=== PATIENT | male | born 1965 | race Caucasian/White ===

== ENCOUNTER 2016-08-01 05:38 | Inpatient (IN) | payer OTHER ==
--- NOTE | 2016-07-27 15:17 | PREOPHP ---
DATE OF ADMISSION: 08/01/2016 PREOPERATIVE INTERNAL MEDICINE CONSULTATION, MEDICAL HISTORY, AND PHYSICAL EXAMINATION The patient is to have surgery with Dr. Declan Rangel 08/01/2016 REASON FOR CONSULTATION: Consultation requested by Dr. Declan Rangel for medical evaluation and martha arance of a 50-year-old gentleman about to undergo surgery. Thank you, Dr. Rangel, for allowing us to participate in the care of this patient. HISTORY OF PRESENT ILLNESS: Eulalia Cardenas is a 50-year-old gentleman with issues with his neck and radicular symptoms down the left upper extremity who is currently being admitted for correction of t he above. In terms of his past surgical experience, he has only had an appendectomy. He has had no medical ho spitalizations, has not broken any bones, and does not take any chronic medications. ALLERGIES: HE HAS NO ALLERGIES TO ANY MEDICATIONS. He describes his general health as being good. SOCIAL HISTORY: The patient is and has 2 children. He does not smoke or drink alcohol but does drink coffee. 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 FAMILY HISTORY: Mother is living at 70 and has lupus. Father unknown. The patient has no siblings . As far as he knows, there is no diabetes, heart, or cancer. There is a family history of ALS. N o hypertension or stroke. REVIEW OF SYSTEMS HEENT: Periodic tension headaches. CARDIORESPIRATORY: Denies any chest pain or shortness of breath. GASTROINTESTINAL: No melena or hematemesis. GENITOURINARY: No urgency, frequency. MUSCULOSKELETAL: Positive for neck pain radiating on the left side. NEUROPSYCHIATRIC: Unremarkable. GENERAL HEALTH: As above. PHYSICAL EXAMINATION: VITAL SIGNS: The patient's blood pressure was 130/80, pulse was 60 and regular, respirations were 1 8, temperature 97.9, height 6 feet, weight 236 pounds. GENERAL: The patient was noted to be a well-developed, well-nourished male, alert and cooperative, in no apparent acute distress, oriented to time, place, and person. HEAD, EARS, EYES, NOSE, AND THROAT: Head was atraumatic. Eyes: Pupils were equal and reactive to light and accommodation. Fundi were benign. Tympanic membranes were unremarkable. Nose was negati ve. Mouth was unremarkable. Fair oral hygiene was present. NECK: Supple without any rigidity. Trachea was midline. Thyroid was within normal limits. Neck v eins were flat. Carotid pulses were equal. No bruits were heard. BACK: Unremarkable. CHEST: Symmetrical. BREASTS AND AXILLARY: Did not reveal any masses. LUNGS: Clear to percussion and auscultation. HEART: PMI was at the fifth intercostal space at the midclavicular line. Regular sinus rhythm was noted. No significant murmurs, rubs, or gallops being elicited. ABDOMEN: Soft, good bowel sounds were noted. No significant organomegaly, masses, or tenderness. GENITALIA: Normal male external genitalia. RECTAL AND PROSTATIC: Per PCP. EXTREMITIES: Did not reveal any clubbing, edema, or cyanosis. Peripheral pulses were physiologic. SKIN: Moist and warm without any eruptions. No gross lymphadenopathy was noted. NEUROLOGIC: Grossly intact. IMPRESSION: 1. Cervical disk disease, particularly at C5-C6. 2. C5-C6 with radicular symptoms, left upper extremity. 3. Stable health. LABORATORY DATA: Review of laboratory and other data revealed the following. The patient's chemistry quality control technician ry panel was basically unremarkable including electrolytes, glucose, BUN, and creatinine. Liver fun ction tests revealed minor elevations in ALT and AST; however, his alkaline phosphatase was normal. CBC, UA, PT, and PTT were normal. The patient's chest x-ray was normal. His EKG revealed some non specific ST-T wave changes and a sinus bradycardia, borderline, with no acute changes being noted. His chest x-ray, as mentioned, was normal. His urine residual postvoid was somewhat high at 103 mL, albeit the patient probably did not really try to empty his bladder totally. DISCUSSION: Dr. Rangel, I see no contraindication in this patient undergoing current proposed lewis rosa under the desired form of anesthesia and may do better without a Henderson catheter placement so ur inary retention will not be an issue. We will be more than happy to follow him along with you during his stay at [facility] from a medical standpoint. Thank you again, Dr. Rangel, for allowing us to participate in the care of this patient. Dictated By: YANDY BANKS/VIRGIL Conf#: [id number] DID#: [id number]
[2016-07-31 11:32] VITALS: BMI 29.7
[~2016-08-01] VITALS: Ht 185.4 cm; Wt 108.0 kg
[2016-08-01] VITALS (18 sets, daily range): BP systolic 113–145; BP diastolic 61–87; PULSE 61–88; RESP 12–20; Ht 185.4 cm; Wt 108.0 kg
[2016-08-01] MEDS: LACTATED RINGER'S 1,000 ML IV* SCH ×6 (05:00→10:12)
[~2016-08-01 05:38] MED LIST: CEFAZOLIN 2 GM/50 ML (PMX) 50 ML IVPB ONE; TRAM-40 PO
[2016-08-01] MEDS ORDERED: GELATIN SIZE 100 SPONGE ONE (06:47)
[2016-08-01] MEDS ORDERED: THROMBIN 5000 UNIT VIAL ONE ×2 (06:48→07:56)
[2016-08-01] MEDS ORDERED: POLYMYXIN/BACITRACIN 1L IRRIG ONE (06:48)
[2016-08-01] MEDS ORDERED: BUPIVACAINE 0.25% (MPF) 10 ML 10 ML VIAL ONE (06:48)
[2016-08-01] MEDS ORDERED: SUCCINYLCHOLINE CHLORIDE 100 MG/5 ML SYG IV ONE (06:54)
[2016-08-01] MEDS ORDERED: ROCURONIUM 50 MG INJ ONE ×2 (06:54→07:37)
[2016-08-01] MEDS ORDERED: PROPOFOL 100 ML ONE (06:54)
[2016-08-01] MEDS ORDERED: MIDAZOLAM 1 MG/ML 2 ML INJ ONE ×2 (06:55)
[2016-08-01] MEDS ORDERED: ACETAMINOPHEN 1000 MG/100 ML IVPB ONE (07:00)
[2016-08-01] MEDS ORDERED: DESFLURANE 15 MIN ONE (07:00)
--- NOTE | 2016-08-01 07:01 | HPN ---
Date/Time of Note Date/Time of Note DATE: 08/01/16 TIME: 07:00 Interval H&P Admission Note Pt. seen H&P reviewed: No system changes YVETTE ROTHMAN MD Aug 01, 2016 07:00
[2016-08-01] MEDS ORDERED: LABETALOL HCL 20MG INJ ONE ×2 (07:18→07:26)
[2016-08-01] MEDS ORDERED: hydrALAzine 20 MG INJ ONE (07:25)
[2016-08-01] MEDS ORDERED: PHENYLephrine (100 MCG/ML) 5ML SYG ONE (07:37)
[2016-08-01] MEDS ORDERED: hydrALAzine 20 MG INJ IV PRN (08:00)
[2016-08-01] MEDS ORDERED: LABETALOL HCL 20MG INJ IV PRN (08:00)
[2016-08-01] MEDS ORDERED: EPHEDrine SULFATE 50 MG/5 ML SYG IV PRN (08:00)
[2016-08-01] MEDS ORDERED: ONDANSETRON 4 MG INJ IV PRN (08:00)
[2016-08-01] MEDS ORDERED: METOCLOPRAMIDE 10 MG INJ IV PRN (08:00)
[2016-08-01] MEDS ORDERED: morphine (1 MG/ML) 10ML SYRINGE IV PRN ×3 (08:00)
[2016-08-01] MEDS ORDERED: MEPERIDINE 25 MG INJ IV PRN (08:00)
[2016-08-01] MEDS ORDERED: HYDROmorphONE (0.2 MG/ML) 10ML SYG IV PRN ×2 (08:00)
[2016-08-01] MEDS ORDERED: DIPHENHYDRAMINE 50 MG INJ IV PRN (08:00)
[2016-08-01] MEDS ORDERED: DEXAMETHASONE 4 MG/ML 1 ML INJ ONE (08:28)
[2016-08-01] MEDS ORDERED: METOCLOPRAMIDE 10 MG INJ ONE (08:28)
[2016-08-01] MEDS ORDERED: ONDANSETRON 4 MG INJ ONE (08:28)
[2016-08-01] MEDS ORDERED: NEOSTIGMINE 3 MG/3 ML SYRINGE ONE (09:44)
[2016-08-01] MEDS ORDERED: GLYCOPYRROLATE 0.4 MG INJ ONE (09:44)
[2016-08-01] MEDS ORDERED: HYDROmorphONE 0.2 MG/ML PCA ONE (10:14)
[2016-08-01] MEDS: HYDROmorphONE (0.2 MG/ML) 10ML SYG IV PRN ×3 (10:18→10:42)
[2016-08-01] MEDS: DEXTROSE 5%-0.45% NACL 1,000 ML IV SCH ×2 (10:19→20:01)
--- NOTE | 2016-08-01 10:29 | OPR ---
Date/Time of Note Date/Time of Note DATE: 08/01/16 TIME: 10:25 Operative Report Preoperative Diagnosis Herniated disc C5-6 on the left Postoperative Diagnosis Same Operation Performed Anterior cervical microdiscectomy C5-6 Anterior cervical interbody arthrodesis at C5-6 Internal fixation at C5-6 using Alphatec plate and screws Left iliac bone graft Cosmetic wound closures (5 cm left cervical 3 cm left iliac) AP and lateral intraoperative radiographs (2 sets) Intraoperative nerve monitoring (2 hours) Surgeon: YVETTE ROTHMAN MD industrial hire sales assistant: ASHLYN MALONEY Anesthesia: general Anesthesiologist: MICHEAL NAVA MD Estimated Blood Loss: 10 - 50 ml's Specimens Disc C5-6 Tubes/Drains 2 medium Hemovac drains employed in the cervical wound One medium Hemovac drain employed in the left iliac wound Complications: None Pt Condition Post Procedure: stable Disposition: PACU Operative\Procedure Findings At surgery, a moderately severe left paracentral herniation of the C5-6 disc was confirmed with cord compression and compression of the left C6 nerve root. YVETTE ROTHMAN MD Aug 01, 2016 10:29
[2016-08-01] MEDS ORDERED: ACETAMINOPHEN 325 MG TAB PO PRN (10:30)
[2016-08-01] MEDS ORDERED: DIAZEPAM 5 MG/ML SYG IM PRN (10:30)
[2016-08-01] MEDS ORDERED: CEPASTAT LOZENGE MT PRN (10:30)
[2016-08-01] MEDS ORDERED: ZOLPIDEM 5 MG TAB PO PRN (10:30)
[2016-08-01] MEDS ORDERED: DIPHENHYDRAMINE 50 MG CAP PO PRN (10:30)
[2016-08-01] MEDS ORDERED: TRIMETHOBENZAMIDE 100 MG/ML VIAL IM PRN (10:30)
[2016-08-01] MEDS ORDERED: BETHANECHOL 25 MG TAB PO PRN (10:30)
[2016-08-01] MEDS ORDERED: HYDROCODONE/APAP (5/325) TAB PO PRN (10:30)
[2016-08-01] MEDS ORDERED: NACL 0.9% 3 ML SYG IV SCH (10:30)
[2016-08-01] MEDS ORDERED: AL HYDROX/MG HYDROX/SIMETH 30 ML CUP PO PRN (10:30)
[2016-08-01] MEDS ORDERED: PROCHLORPERAZINE 10 MG TAB PO PRN (10:30)
[2016-08-01] MEDS ORDERED: NALOXONE (0.4 MG/ML) INJ IV PRN (10:30)
[2016-08-01] MEDS: HYDROmorphONE 0.2 MG/ML PCA IV SCH ×3 (10:53→22:36)
--- NOTE | 2016-08-01 11:18 | OPR ---
DATE OF OPERATION: 08/01/2016 PREOPERATIVE DIAGNOSIS: Herniated disk C5-6 on the left. POSTOPERATIVE DIAGNOSIS: Herniated disk C5-6 on the left. OPERATION PERFORMED: 1. Anterior cervical microdiskectomy at C5-6. 2. Anterior cervical interbody arthrodesis at C5-6. 3. Internal fixation C5-6 using 14 mm Alphatec plate and screws. 4. Left iliac bone graft. 5. Cosmetic wound closures (5 cm left cervical, 3 cm left iliac). 6. AP and lateral cervical radiographs (2 sets). 7. Intraoperative nerve monitoring (2 hours). SURGEON: Declan Rangel MD SHEET PILE HAMMER OPERATOR: FAIZA Eason ANESTHESIA: General endotracheal. ANESTHESIOLOGIST: Isaac Xiong MD ESTIMATED BLOOD LOSS: 25 mL-none replaced. DRAINS: Two medium Hemovac drains employed in the cervical wound, one medium Hemovac drain employed in the left iliac wound. COMPLICATIONS: None. 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 He has had extensive care since that time, has remained symptomatic. Recently, he has had severe neck and left arm pain which has been unrelieved by conservative management. He has undergone a nu mber of diagnostic studies including an MRI of the cervical spine which demonstrated disk herniation s at C5-6 on the left with disk space narrowing, cord compression, and compression of the exiting le ft C6 nerve root. Treatment options discussed with the patient, he elected to proceed with surgery. OPERATIVE FINDINGS AT SURGERY: The patient had a moderately severe left paracentral herniation of t he C5-6 disk with cord compression and compression of the exiting C6 nerve root. The baseline intra operative nerve monitoring revealed a decrease in the left C5 potential of 40%, the left C6 potentia l of 30% and the left C7 potential of 10%. These all returned to normal at the completion of surger y. OPERATIVE PROCEDURE: With the patient in supine position after satisfactory induction of general en dotracheal anesthesia by Dr. Xiong the patient was positioned with a 5-pound sandbag under the lef t buttock and a 3 liter IV bottle under the shoulders. The anterior cervical spine and left iliac c rest areas were prepped and draped in usual sterile fashion. Athrombic pumps were applied to the le gs below the knees to prevent venous stasis during and after the procedure. An indwelling Henderson cat heter was also placed preoperatively to facilitate bladder drainage during the procedure; it was rem aniya at the end of the procedure. The 5 cm transverse incision was carried over the anterior aspect of cervical spine parallel to the left clavicle, approximately 2 fingerbreadths above the left clav icle through skin and subcutaneous tissue to the platysma fascia. Superficial retractors were place d and hemostasis secured with electrocautery. The interval between the sternocleidomastoid and stra p muscles was entered with blunt dissection after the platysma fascia was divided transversely with a hot knife. The Cloward handheld retractor was used to protect the trachea and esophagus and the p eanut elevator was then used to clear the anterior longitudinal ligament of overlying soft tissues. A 20-gauge spinal needle was angulated to prevent overpenetration was then placed in what was felt to be the C5-6 disk space and a lateral x-ray was taken which confirmed anatomic localization. Thro ughout the procedure copious amounts of antibacterial irrigating solution were used to periodically irrigate the wound. The x-ray confirmed the marker needle to be at C5-6 and the operating microscop e then moved into place. A 15 blade knife used to cut a rectangular window in the annulus and anter ior longitudinal ligament and multiple degenerative disk fragments were then harvested with pituitar y rongeurs and sent to laboratory for pathologic study. The Cloward interbody distractors were used to facilitate disk space distraction and the Cloward retractors were used to provide exposure of th e disk space. The longissimus coli muscles were elevated bilaterally prior to placement of the Candida krystle retractor. The 0, 2.0, 3.0 and 4.0 straight and angulated Ariela curettes were then used to lashaun giorgio nuclear contents back to the level of the posterior longitudinal ligament. The posterior long itudinal ligament was taken down in midline with a 1 mm Kerrison punch and over to the foramina bila terally. Several additional fragments of disk material were extracted posterior to the posterior lo ngitudinal ligament on the left that were compressing the cord and the exiting C6 nerve root. The c artilaginous endplates were then abraded with a high-speed nelly bur down to subchondral bleeding bone. At this point, the attention was then turned to the left iliac crest where a 3 cm incision was astrid ed out 1 inch proximal and 1 inch lateral to the anterior superior iliac spine in line with the db c crest through skin and subcutaneous tissue after the skin was infiltrated with 0.25% Marcaine with out epinephrine for postoperative analgesia. The skin was then retracted to the level of the iliac crest and a fascial incision made directly over the iliac crest with a hot knife. A subperiosteal d issection was then carried out in the inner and outer table of the left ilium, and a tricortical william ac bone graft was then harvested approximately 1 cm deep and 1 cm in length. The donor bone edges w ere carefully waxed for hemostasis after thorough irrigation with antibacterial irrigating solution. The wound was closed over a deep medium Hemovac drain using #1 Vicryl sutures on the fascia, 2-0 V icryl sutures in subcu tissue, and a 4-0 Vicryl subcuticular cosmetic closing suture on the skin. Attention then returned to the cervical wound where the bone plug was trimmed to approximately 6 mm in height and 8 mm in depth. It was impacted into the disk space under direct vision. The Cloward interbody distractors were removed, and the bone plug appeared to be locked in place with approximat sharlene 1 to 2 mm of countersinking. A 14 mm Alphatec single level cervical plate was selected and temp orarily transfixed to the anterior cervical spine with darts. AP and lateral x-rays were taken, [facility] confirmed appropriate positioning of the bone plug and the plate. Then 14 mm self-tapping screws were then used to secure the plate to the C5 and C6 vertebral bodies. Final AP and lateral x-rays were taken, which confirmed appropriate positioning of the hardware and the bone plug. The wound wa s again copiously irrigated with antibacterial irrigating solution and closed over 2 medium Hemovac drains, one below the fascia and one above the fascia using 0 Vicryl Stratafix sutures on the strap muscles, 0 Vicryl sutures on the platysma fascia, 3-0 Vicryl sutures in subcu tissue, and a 4-0 Vicr yl subcuticular cosmetic closing suture on the skin. Dermabond was placed over both incisions and t he patient's neck was then immobilized in an [place] collar after sterile dressings were applied. The patient having tolerated procedure well and was then transported to recovery room in satisfactory c ondition. At the conclusion of the procedure, sponge, instrument, and needle counts were all correc t. NEED FOR CUSTODIAN SUPERVISOR: During this spinal surgical procedure, my early childhood assistant was used to retrac t and protect the spinal nerves and dural sac. My early childhood assistant also employed the suction catheters to e vacuate blood from the surgical field to improve visualization of the neural structures. The assista nt was medically necessary to facilitate the completion of the surgery in a safe and expeditious man ner. [facility] [place] regulations, as well as hospital bylaws, preclude the use of non-licensed the [facility] care personnel such as operating room technicians, to perform these functions. Throughout the procedure, neural monitoring was carried out by [employer] including EMG, SSEP and MEP monitoring of the C4, C5, C6, C7 nerve roots bilaterally along with spin al cord potentials. These were interpreted by neurologist employed by [employer]. Dictated By: DECLAN RANGEL MD TM/NTS Conf#: [id number] DID#: [id number] CC: ADRIA MENDEZ MD;*EndCC*
--- NOTE | 2016-08-01 12:29 | RADRPT ---
PROCEDURE: XR Cervical Spine. CLINICAL INDICATION: Neck pain. TECHNIQUE: 6 views of the cervical spine were performed with portable equipment in the operating r oom The images were reviewed on a PACS workstation. COMPARISON: None. FINDINGS: The initial lateral image demonstrates the endotracheal tube in position and degenerative change at C5-6 with disk space narrowing and osteophytes. Subsequent frontal and lateral images demonstrate anterior plate and screws in satisfactory position at C5-6. There is no lytic or blastic lesion. IMPRESSION: 1. Intraoperative imaging of the cervical spine for anterior fusion at C5-6. RPTAT: QQ .Porfirio Rosas MD, MD Date Time Electronically viewed and signed by .Porfirio Rosas MD, on 08/01/2016 12:29 .R/
[2016-08-01] MEDS: CEFAZOLIN 1 GM/50 ML (PMX) 50 ML IVPB SCH ×2 (15:20→20:58)
--- NOTE | 2016-08-01 19:01 | CONS ---
Date/Time of Note Date/Time of Note DATE: 08/01/16 TIME: 19:00 Assessment/Plan Assessment/Plan Problems: (1) Status post cervical spinal fusion Status: Acute Comment: He is postop and stable. There is no evidence of untoward complications. Will watch him carefully. Consultation Date/Type/Reason Admit Date/Time Aug 01, 2016 at 05:38 Initial Consult Date August 01, 2016 Type of Consultation: Internal medicine Reason for Consultation Postop coordination of care Referring Provider: YVETTE ROTHMAN MD 24 HR Interval Summary Free Text/Dictation Patient is postop and while he is complaining of his pain medication wearing off is otherwise doing well. Constitutional: no complaints Detailed Summary ENT: no complaints Respiratory: no complaints Cardiovascular: no complaints Gastrointestinal: no complaints Genitourinary: no complaints Exam/Review of Systems Vital Signs Vitals Vital Signs Date Time Temp Pulse Resp B/P Pulse Ox O2 Delivery O2 Flow Rate FiO2 08/01/16 16:00 18 08/01/16 11:05 98.6 82 136/74 95 Nasal Cannula 2.0 Exam Physically robust with muscular hypertrophy L mid Constitutional: alert, oriented Neck: non-tender, supple Respiratory: clear to auscultation, normal air movement Cardiovascular: nl pulses, regular rate and rhythm Gastrointestinal: nl liver, spleen, non-tender, soft Medications Medications Current Medications Lactated Ringer's 1,000 ml @ 20 mls/hr Q24H IV* Last administered on 10:12; Start 08/01/16 at 05:00; Stop 08/02/16 at 04:49 Lactated Ringer's 1,000 ml @ 20 mls/hr Q24H IV* Last administered on 10:12; Start 08/01/16 at 06:00; Stop 08/03/16 at 07:59 Dextrose/Sodium Chloride (D5-1/2ns) 1,000 ml @ 100 mls/hr Q10H IV ; Start 08/01 at 10:19 Acetaminophen/ Hydrocodone Bitart ([place] (5/325)) 1 tab Q4H PRN PO PAIN LEVEL 1 -5; Start 08/01/16 at 10:30 Acetaminophen/ Hydrocodone Bitart 2 tab 2 tab Q4H PRN PO PAIN LEVEL 6-10; Start 08/01/16 at 10:30 Cefazolin Sodium (Ancef 1 Gm/50 ml (Pmx)) 50 ml @ 100 mls/hr Q6 IVPB Last administered on 08/01/16t 15:20; Admin Dose 100 MLS/HR; Start 08/01/16 at 12:00 ; Stop 08/02/16 at 06:29 Zolpidem Tartrate (Ambien) 5 mg HS PRN PO INSOMNIA; Start 08/01/16 at 10:30 Prochlorperazine (Compazine) 10 mg Q4H PRN PO NAUSEA AND/OR VOMITING; Start 04/07 at 10:30 Trimethobenzamide HCl (Tigan) 200 mg Q4H PRN IM NAUSEA AND/OR VOMITING; Start 08/01/16 at 10:30 Ondansetron HCl (Zofran Inj) 4 mg Q6H PRN IV NAUSEA AND/OR VOMITING; Start 04/07 at 10:30 Al Hydrox/Mg Hydrox/Simethicone (Mag-Al Plus) 15 ml Q4H PRN PO CONSTIPATION; Start 08/01/16 at 10:30 Docusate Sodium (Colace) 100 mg BID PO ; Start 08/02/16 at 09:00 Acetaminophen (Tylenol Tab) 650 mg Q4H PRN PO TEMP GREATER THAN 101F OR HE; Start 08/01/16 at 10:30 Ascorbic Acid (Vitamin C) 1,000 mg BID PO ; Start 08/02/16 at 09:00 Ferrous Sulfate (Ferrous Sulfate (Ec)) 325 mg TID PO ; Start 08/02/16 at 09:00 Ranitidine HCl (Zantac) 150 mg BID PO ; Start 08/01/16 at 21:00 Diazepam (Valium) 5 mg Q4H PRN PO MUSCLE SPASMS; Start 08/01/16 at 10:30 Diazepam (Valium) 5 mg Q4H PRN IM MUSCLE SPASMS; Start 08/01/16 at 10:30 Phenol (Cepastat Lozenge) 1 lozenge PRN PRN MT SORE THROAT; Start 08/01/16 at 10:30 Bethanechol Chloride (Urecholine) 25 mg PRN PRN PO UNABLE TO VOID; Start at 10:30 Diphenhydramine HCl (Benadryl) 50 mg Q6H PRN PO PRURITUS; Start 08/01/16 at 10: 30 Hydromorphone HCl (Dilaudid ASSAULT AMPHIBIOUS VEHICLE CREWMAN) Q4PCA IV Last administered on 08/01/16t 15:27 ; Admin Dose 6 MG; Start 08/01/16 at 10:30 Naloxone HCl (Narcan) 0.2 mg Q2M PRN IV RR 8 BREATHS/MIN OR LESS; Start at 10:30 ADRIA MENDEZ MD Aug 01, 2016 19:01
[2016-08-01] MEDS: ONDANSETRON 4 MG INJ IV PRN (20:59)
[2016-08-01] MEDS: RANITIDINE 150 MG TAB PO SCH (21:00)
[2016-08-02 00:07] VITALS: BP 122/70; RESP 18
[2016-08-02] MEDS: CEFAZOLIN 1 GM/50 ML (PMX) 50 ML IVPB SCH ×2 (03:30→08:31)
[2016-08-02] MEDS: ONDANSETRON 4 MG INJ IV PRN ×2 (03:48→10:51)
[2016-08-02 04:00] VITALS: BP 123/67; PULSE 82; RESP 18
[2016-08-02 05:12] LABS: HEMATOCRIT 39.6 % (42.0-52.0)
[2016-08-02] MEDS: HYDROmorphONE 0.2 MG/ML PCA IV SCH (05:16)
[2016-08-02 05:21] LABS: POTASSIUM 4.2 mmol/L (3.5-5.1)
[2016-08-02 05:23] LABS: CREATININE 0.88 mg/dl (0.61-1.24)
[2016-08-02 05:24] LABS: CALCIUM 9.1 mg/dl (8.4-10.2)
[2016-08-02] MEDS: DEXTROSE 5%-0.45% NACL 1,000 ML IV SCH ×2 (06:23→17:00)
--- NOTE | 2016-08-02 07:21 | PN ---
Date/Time of Note Date/Time of Note DATE: 08/02/16 TIME: 07:19 Assessment/Plan Lines/Catheters IV Catheter Type (from Nrsg): Peripheral IV Henderson in Place (from Nrsg): No Subjective 24 Hr Interval Summary Patient is postop day #1 from anterior cervical decompression fusion at C5-6. He was nauseated this morning and vomited. He has not been ambulating yet. Vital signs are stable, hemoglobin is 13 this morning. Drains in the neck and hip were 10 cc each. Drains were removed and incisions are healing well. Neurovascular structures are intact. 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 If is cleared by physical therapy and internal medicine later today he may be discharged later today or tomorrow. Exam/Review of Systems Vital Signs Vitals Vital Signs Date Time Temp Pulse Resp B/P Pulse Ox O2 Delivery O2 Flow Rate FiO2 08/02/16 05:02 17 08/02/16 04:00 98.0 82 123/67 96 Nasal Cannula 2.0 Intake and Output 08/01/16 08/01/16 08/02/16 15:00 23:00 07:00 Intake Total 1400 ml 650 ml 1290 ml Output Total 680 ml 110 ml 1120 ml Balance 720 ml 540 ml 170 ml Results Result Diagram: 08/02/16 0422 08/02/16 0422 KIMBERLY FREED Aug 02, 2016 07:21
[2016-08-02] MEDS ORDERED: BETHANECHOL 25 MG TAB PO PRN (08:00)
[2016-08-02 08:01] VITALS: BP 126/79; RESP 20
[2016-08-02] MEDS: ASCORBIC ACID 500 MG TAB PO SCH ×2 (08:30→19:58)
[2016-08-02] MEDS: RANITIDINE 150 MG TAB PO SCH ×2 (08:30→19:57)
[2016-08-02] MEDS: DOCUSATE SODIUM 100 MG CAP PO SCH ×2 (08:30→19:57)
[2016-08-02] MEDS: HYDROCODONE/APAP (5/325) TAB PO PRN ×4 (08:30→19:58)
[2016-08-02] MEDS: FERROUS SULFATE (EC) 325 MG TAB PO SCH ×3 (08:30→19:57)
--- NOTE | 2016-08-02 17:39 | CONS ---
Date/Time of Note Date/Time of Note DATE: 08/02/16 TIME: 17:37 Assessment/Plan Assessment/Plan Problems: (1) Status post cervical spinal fusion Status: Acute Comment: Doing well POD#1. Cont. PT and pain control. No medical issues to manage at this time. Consultation Date/Type/Reason Admit Date/Time Aug 01, 2016 at 05:38 Initial Consult Date 08/01/2016 Type of Consultation: Internal medicine Reason for Consultation Medical management Referring Provider: YVETTE ROTHMAN MD 24 HR Interval Summary Constitutional: improved, no complaints Detailed Summary Respiratory: no complaints Cardiovascular: no complaints Gastrointestinal: no complaints Genitourinary: no complaints Musculoskeletal: bone/joint pain (hip), neck pain Neurologic: no complaints Exam/Review of Systems Vital Signs Vitals VS - Last 72 Hours, by Label Date Time Temp Pulse Resp B/P Pulse Ox O2 Delivery O2 Flow Rate FiO2 08/02/16 08:01 98.2 70 20 126/79 96 08/02/16 05:02 17 08/02/16 04:00 98.0 82 18 123/67 96 Nasal Cannula 2.0 08/02/16 01:03 18 08/02/16 00:07 97.6 78 18 122/70 97 08/01/16 21:00 19 08/01/16 20:20 Nasal Cannula 2.0 08/01/16 19:44 97.6 83 18 121/70 94 08/01/16 17:00 18 08/01/16 16:00 18 08/01/16 15:30 82 113/61 08/01/16 13:30 88 126/68 08/01/16 13:00 88 121/76 08/01/16 12:30 87 126/77 08/01/16 12:00 98.2 88 16 126/73 93 Nasal Cannula 2.0 08/01/16 11:05 98.6 82 14 136/74 95 Nasal Cannula 2.0 08/01/16 10:59 86 16 119/77 96 Nasal Cannula 2.0 08/01/16 10:54 84 14 128/74 96 Nasal Cannula 2.0 08/01/16 10:49 84 14 129/73 95 Nasal Cannula 2.0 08/01/16 10:44 88 16 132/74 96 Nasal Cannula 2.0 08/01/16 10:39 84 14 116/74 95 Nasal Cannula 2.0 08/01/16 10:34 84 14 129/70 95 Nasal Cannula 2.0 08/01/16 10:29 84 14 120/65 95 Nasal Cannula 2.0 08/01/16 10:26 Nasal Cannula 2.0 08/01/16 10:24 88 12 127/72 92 Nasal Cannula 2.0 08/01/16 10:19 88 12 135/72 98 Nasal Cannula 2.0 08/01/16 10:14 98.7 88 12 133/77 97 Nasal Cannula 2.0 08/01/16 10:14 98.4 08/01/16 06:28 97.3 61 20 145/87 99 Room Air Vital Signs Date Time Temp Pulse Resp B/P Pulse Ox O2 Delivery O2 Flow Rate FiO2 08/02/16 08:01 98.2 70 20 126/79 96 08/02/16 04:00 Nasal Cannula 2.0 Intake and Output 08/01/16 08/01/16 08/02/16 15:00 23:00 07:00 Intake Total 1400 ml 650 ml 1290 ml Output Total 680 ml 110 ml 1120 ml Balance 720 ml 540 ml 170 ml Exam Constitutional: alert, oriented, well developed Psych: nl mood/affect, no complaints Neck: other (c-collar) Respiratory: clear to auscultation, normal air movement Cardiovascular: nl pulses, regular rate and rhythm, No edema, No murmurs/extra sounds, No rub Gastrointestinal: bowel sounds, nl liver, spleen, non-tender, soft, No mass, No rebound or guarding Musculoskeletal: nl extremities to inspection Extremities: normal pulses, No clubbing, No cyanosis, No edema Neurological: C[employer] SUPPORT REPRESENTATIVE II-XII intact, nl mental status, nl speech, nl strength Results Result Diagram: 08/02/1642108/02/162 Results 24 hrs Laboratory Tests Test 08/02/16 04:22 Hemoglobin 13.0 L Hematocrit 39.6 L Sodium Level 135 Potassium Level 4.2 Chloride Level 96 L Carbon Dioxide Level 24 Anion Gap 19 H Blood Urea Nitrogen 24 H Creatinine 0.88 Glucose Level 145 Calcium Level 9.1 Medications Medications Current Medications Lactated Ringer's 1,000 ml @ 20 mls/hr Q24H IV* Last administered on t 10:12; Start 08/01/16 at 06:00; Stop 08/03/16 at 07:59 Dextrose/Sodium Chloride (D5-1/2ns) 1,000 ml @ 100 mls/hr Q10H IV Last administered on 08/02/16 06:23; Admin Dose 100 MLS/HR; Start 08/01/16 at 10:19 Acetaminophen/ Hydrocodone Bitart ([place] (5/325)) 1 tab Q4H PRN PO PAIN LEVEL 1 -5; Start 08/01/16 at 10:30 Acetaminophen/ Hydrocodone Bitart ([place] (5/325)) 2 tab Q4H PRN PO PAIN LEVEL 6 -10 Last administered on 08/02/16 16:05; Admin Dose 2 TAB; Start 08/01/16 at 10 :30 Zolpidem Tartrate (Ambien) 5 mg HS PRN PO INSOMNIA; Start 08/01/16 at 10:30 Prochlorperazine (Compazine) 10 mg Q4H PRN PO NAUSEA AND/OR VOMITING; Start 04/07 at 10:30 Trimethobenzamide HCl (Tigan) 200 mg Q4H PRN IM NAUSEA AND/OR VOMITING; Start 08/01/16 at 10:30 Ondansetron HCl (Zofran Inj) 4 mg Q6H PRN IV NAUSEA AND/OR VOMITING Last administered on 08/02/16 10:51; Admin Dose 4 MG; Start 08/01/16 at 10:30 Al Hydrox/Mg Hydrox/Simethicone (Mag-Al Plus) 15 ml Q4H PRN PO CONSTIPATION; Start 08/01/16 at 10:30 Docusate Sodium (Colace) 100 mg BID PO Last administered on 08/02/16 08:30; Admin Dose 100 MG; Start 08/02/16 at 09:00 Acetaminophen (Tylenol Tab) 650 mg Q4H PRN PO TEMP GREATER THAN 101F OR HE; Start 08/01/16 at 10:30 Ascorbic Acid (Vitamin C) 1,000 mg BID PO Last administered on 08/02/16 08:30 ; Admin Dose 1,000 MG; Start 08/02/16 at 09:00 Ferrous Sulfate (Ferrous Sulfate (Ec)) 325 mg TID PO Last administered on 11:53; Admin Dose 325 MG; Start 08/02/16 at 09:00 Ranitidine HCl (Zantac) 150 mg BID PO Last administered on 08/02/16 08:30; Admin Dose 150 MG; Start 08/01/16 at 21:00 Diazepam (Valium) 5 mg Q4H PRN PO MUSCLE SPASMS; Start 08/01/16 at 10:30 Diazepam (Valium) 5 mg Q4H PRN IM MUSCLE SPASMS; Start 08/01/16 at 10:30 Phenol (Cepastat Lozenge) 1 lozenge PRN PRN MT SORE THROAT Last administered on 08/02/16 00:24; Admin Dose 1 LOZENGE; Start 08/01/16 at 10:30 Bethanechol Chloride (Urecholine) 25 mg PRN PRN PO UNABLE TO VOID; Start at 10:30 Diphenhydramine HCl (Benadryl) 50 mg Q6H PRN PO PRURITUS Last administered on 11:52; Admin Dose 50 MG; Start 08/01/16 at 10:30 Naloxone HCl (Narcan) 0.2 mg Q2M PRN IV RR 8 BREATHS/MIN OR LESS; Start at 10:30 Bethanechol Chloride (Urecholine) 25 mg PRN PRN PO UNABLE TO VOID; Start at 08:00 ELIZA GAMBOA MD Aug 02, 2016 17:39
[2016-08-02] MEDS: DIAZEPAM 5 MG TAB PO PRN (20:33)
[2016-08-02 21:00] VITALS: BP 139/73; RESP 20
[2016-08-03] MEDS: HYDROCODONE/APAP (5/325) TAB PO PRN ×4 (00:05→12:37)
[2016-08-03] MEDS: DIAZEPAM 5 MG TAB PO PRN ×4 (00:42→12:37)
[2016-08-03] MEDS: DEXTROSE 5%-0.45% NACL 1,000 ML IV SCH ×2 (02:19→11:47)
[2016-08-03 07:00] VITALS: BP 125/80; RESP 20
--- NOTE | 2016-08-03 07:28 | PN ---
Date/Time of Note Date/Time of Note DATE: 08/03/16 TIME: 07:25 Assessment/Plan Lines/Catheters IV Catheter Type (from Nrsg): Saline Lock [place] in Place (from Nrsg): No Subjective 24 Hr Interval Summary Pt is POD #2 from ACDF. He did well overnight and is doing better today. He has been up ambulating but has not been cleared by PT yet for d/c. He is tolerating diet. Pain is well controlled. VS are stable. Plan is to d/c after cleared by PT and Medicine. D/c instructions given to pt. Exam/Review of Systems Vital Signs Vitals Vital Signs Date Time Temp Pulse Resp B/P Pulse Ox O2 Delivery O2 Flow Rate FiO2 08/02/16 21:00 98.4 94 20 139/73 92 08/02/16 04:00 Nasal Cannula 2.0 Intake and Output 08/02/16 08/02/16 08/03/16 15:00 23:00 07:00 Intake Total 1020 ml 920 ml Output Total 2000 ml 1400 ml Balance -980 ml -480 ml Results Result Diagram: 08/02/16 0422 08/02/16 0422 KIMBERLY FREED Aug 03, 2016 07:27
[2016-08-03] MEDS: RANITIDINE 150 MG TAB PO SCH (08:41)
[2016-08-03] MEDS: DOCUSATE SODIUM 100 MG CAP PO SCH (08:41)
[2016-08-03] MEDS: ASCORBIC ACID 500 MG TAB PO SCH (08:41)
[2016-08-03] MEDS: FERROUS SULFATE (EC) 325 MG TAB PO SCH ×2 (08:42→12:37)
[2016-08-03] MEDS ORDERED: HYDR-3498 PO (12:41)
== END 2016-08-03 15:53 | disposition home or self-care (01) | DRG 473 ==
LOC: REC 05:38 → MS1 11:23
PROVIDERS: ADMIT Orthopaedic Surgery; ATTEND Orthopaedic Surgery
PROC: 0RB30ZZ Excision of Cervical Vertebral Disc, Open Approach (ICD-10-PCS; 2016-08-01)
PROC: 0QB30ZZ Excision of Left Pelvic Bone, Open Approach (ICD-10-PCS; 2016-08-01)
PROC: 0RG10A0 Fusion of Cervical Vertebral Joint with Interbody Fusion Device, Anterior Approach, Anterior Column, Open Approach (ICD-10-PCS; principal; 2016-08-01 07:00)
DX: M50.122 Cervical disc disorder at C5-C6 level with radiculopathy (principal)
CPT/HCPCS: 72050; 80048; 85014; 85018; 86850; 86900; 86901; 86920; 97116; 97162; 97530; C1713; J0131; J0330; J0360; J0690; J1100; J1170; J2175; J2250; J2370; J2405; J2710; J2765; J3010; J7042; J7120